=== PATIENT | male | born 1940 | race Caucasian/White ===

== ENCOUNTER → 2016-11-11 | Outpatient (CLI) | payer MEDICARE, BC ==
[~2016-11-11] MED LIST: ASPI-558 PO; CETI10TA56 PO; DULO60CA25 PO; FURO-154 PO; GADOBUTROL 10mMol/10ml INJECTION IV ONE; HYDR-4246 PO; LEVE500T9 PO; MAGN400T6 PO; MELA5TAB14 PO; METF-206 PO; METO-275 PO; MULT-806 PO; NITR0.4T39 SL; PIOG45TA5 PO; POTA20TA87 PO; SALINE FLUSH 10ml SYRINGE ONE; SILO8CAP PO; SIMV40TA73 PO; SITA100T12 PO; VITA1TAB21 PO; vitamin d PO
--- NOTE | 2016-11-12 08:31 | DI ---
Indication: ITS.REASON: R51 HOLT; H53.8 BLURRY VISION; I63.9 HX CVA PROCEDURE: MRI BRAIN W/WO CONTRAST: Encounter: Initial Comparisons: Head CT dated August 23, 2016 and brain MRI dated January 30, 2015 Technique: Multiplanar, multisequence, MR imaging of the head with and without contrast was acquired. Contrast: 10 mL of Gadavist FINDINGS: New acute diffusion restriction in the right occipital lobe. Old bilateral cerebellar infarcts. Mild generalized atrophy. The ventricles are of normal size, shape, and contour for the patient's age. There are small nonspecific punctate areas of T2-weighted and T2 FLAIR weighted signal abnormality in the deep frontoparietal white matter that most likely represent small vessel ischemic disease. This is of a degree that is considered to be normal for the patient's age. The brain stem, cerebellum, and cerebral hemispheres otherwise have a normal morphologic appearance as well as MR signal intensity on all pulse sequences. Following intravenous administration of contrast, no areas of abnormal enhancement are evident. There is no evidence of an intracranial mass lesion, intracranial hemorrhage, or hydrocephalus. The visualized portions of the orbits, calvarium, paranasal sinuses, and skull base demonstrate no significant abnormality. IMPRESSION: Acute right occipital infarct. This is in the [employer] territory. .
== END ==
LOC: IMA 17:52
PROVIDERS: ATTEND Nurse Practitioner
DX: I63.9 Cerebral infarction, unspecified (principal); H53.8 Other visual disturbances; R51 Headache
CPT/HCPCS: 70553; A9585